=== PATIENT | male | born 1990 | race Caucasian/White ===

== ENCOUNTER → 2016-04-05 | Outpatient (CLI) | payer OTHER ==
--- NOTE | 2016-04-05 19:46 | REP ---
Clinical: Trauma. Bilateral pain. Technique: AP and lateral views of the right and left forearms. Findings: Bilateral forearms demonstrate acute comminuted fractures involving the distal radial metaphyses extending to the articular surfaces along with ulnar styloid fractures. Impression: Bilateral comminuted fractures involving the distal radial metaphyses extending to the articular surfaces along with ulnar styloid fractures. Overlying soft tissue swelling. Signed by Bernardo Bedoya MD 04/05/2016 07:38 P
--- NOTE | 2016-04-05 19:49 | REP ---
Clinical: Trauma. Bilateral pain. Technique: AP and lateral views of the left wrist with AP, lateral, and oblique views of the right wrist. Findings: Bilateral acute comminuted fractures involving the distal radial metaphyses extending to the articular surfaces along with bilateral ulnar styloid fractures. The carpal bones appear relatively intact bilaterally although subtle injuries cannot be excluded. Overlying soft tissue swelling noted bilaterally. Impression: Bilateral comminuted fractures involving the distal radial metaphyses extending to the articular surfaces along with ulnar styloid fractures. Injuries to the carpal bones cannot definitively be excluded although not identified by current imaging. Signed by Bernardo Bedoya MD 04/05/2016 07:41 P
== END ==
LOC: M LRY 19:05
PROVIDERS: ATTEND Nurse Practitioner Family
DX: S69.91XA Unspecified injury of right wrist, hand and finger(s), initial encounter (principal); X58.XXXA Exposure to other specified factors, initial encounter; Y92.89 Other specified places as the place of occurrence of the external cause

== ENCOUNTER 2016-04-07 13:12 | Emergency (ER) | payer OTHER ==
[2016-04-07] MEDS ORDERED: ACETAMINOPHEN 325 MG TAB As Ordered ONE (15:12)
[2016-04-07] MEDS ORDERED: IBUPROFEN 800 MG TAB As Ordered ONE (15:13)
[2016-04-07] MEDS ORDERED: NORCO, ANEXSIA 5/325MG TABLET (HYDROcodone/ACETAMINOPHEN) As Ordered ONE (16:07)
[2016-04-07] MEDS ORDERED: AUGMENTIN 875 MG TAB As Ordered ONE (16:07)
--- NOTE | 2016-04-07 16:22 | EDDOCDS ---
Nurse's Notes [facility] Name: Rober Zaragoza Age: 25 yrs Sex: Male : 1990 Arrival Date: 04/07/2016 Time: 13:12 Bed PR [facility] Diagnosis: Acute sinusitis;Pain in unspecified wrist-Bilateral Fractures, Pain meds given Presentation: 04/07 13:17 Presenting complaint: states: Fever since . had splint put on both wrist rs3 Friday. Was seen at urgent care today. they sent him here. temp 103.7 orally. Adult Sepsis Screening: The patient does not have new or worsening altered mentation. Patient's respiratory rate is less than 22. Systolic blood pressure is greater than 100. Patient has a qSOFA score of 0- Negative Sepsis Screen. Suicide/Homicide risk assessment- the patient denies having any suicidal and/or homicidal ideations and does not present with any other emotional, behavioral or mental health complaints. Status: The patient is a dependent. Transition of care: patient was not received from another setting of care. 13:17 Acuity: FAWAD Level 3 rs3 13:17 Method Of Arrival: Walkin/Carried/Asstd rs3 Triage Assessment: 13:20 General: Appears in no apparent distress. Pain: Location: headache, throat. Pt Declines rs3 HIV testing. Historical: - Allergies: no known allergies; - Home Meds: 1. ibuprofen 800 mg Oral tab as needed - PMHx: none; - PSHx: none; - Social history: Smoking status: Patient states former smoker of tobacco. No barriers to communication noted, The patient speaks fluent Welsh. - Family history: Not pertinent. - : The pt / caregiver states he / she is not on anticoagulants. Home medication list is obtained from the patient. - Exposure Risk Screening:: None identified. Screenin:14 Screening information is obtained from the patient. Fall risk: No risks identified. jo3 Assistance ADL's: requires no assistance with activities of daily living. Abuse/DV Screen: The patient / caregiver reports he/she is: not in a situation that causes fear, pain or injury. Nutritional screening: No deficits noted. Advance Directives: There is no active DNR order. home support is adequate. Assessment: 16:14 General: Appears in no apparent distress, comfortable, Behavior is appropriate for age, jo3 cooperative. Neurological: Level of Consciousness is awake, alert, Oriented to person, place, time. Respiratory: Airway is patent Respiratory effort is even, unlabored. Derm: Skin is pink, warm & dry. Musculoskeletal: MARSHA splints in place to upper extremities. Good CSM noted. Vital Signs: 13:14 BP 133 / 74; Pulse 123; Resp 18 S; Temp 102.3(O); Pulse Ox 98% on R/A; Weight 77.11 kg dd6 (R); Height 6 ft. 2 in. (187.96 cm) (R); 16:14 BP 122 / 72; Pulse 70; Resp 16; Temp 99.7(O); Pulse Ox 98% on R/A; jo3 13:14 Body Mass Index 21.83 (77.11 kg, 187.96 cm) dd6 Vitals: 13:14 Log In Time: April 07, 2016 at 13:12. dd6 15:24 Strep Screen is obtained and tested: Negative, a GATSNEG culture is ordered in [facility] dls and sent. ED Course: 13:13 Patient visited by Justin Arrieta PCA. dd6 13:13 [facility] SAUNDERS is Private Physician. dd6 13:13 Patient moved to Waiting dd6 13:15 Patient moved to Pre RCE dd6 13:19 Triage Initiated rs3 13:32 Patient moved to Triage 3 dls 14:23 Patient visited by Liz Licona RN. dls 15:06 Janel Tamez PA-C is [facility]. ef1 15:06 Bill Burroughs MD is Attending Physician. ef1 15:06 Patient visited by Janel Tamez PA-C. ef1 15:07 Patient moved to PR2 / 26 dls 15:22 -Influenza A&B Rapid Antigen - Nose Sent. dls 15:25 GATS (NEGATIVE STREP SCREEN) Sent. ar3 15:34 Patient visited by Janel Tamez PA-C. ef1 15:39 [facility] Payment Agreement was scanned into [employer] and attached to record. jp5 15:46 Patient name changed from Rober\S\L\S\Mila\S\ to Rober\S\Gaurav\S\Mila. EDMS 15:53 Patient visited by Janel Tamez PA-C. ef1 15:55 [facility] SAUND[facility] is Referral Physician. ef1 15:55 [place] is Referral Physician. ef1 16:14 The patient / caregiver is instructed regarding the plan of care and ED course. jo3 16:14 No IV's were initiated during this patient's visit. No procedures done that require jo3 assistance. Administered Medications: 15:22 Drug: Ibuprofen 800 mg [ibuprofen 800 mg tablet (1 tabs)] Route: PO; dls 15:22 Drug: Acetaminophen 975 mg [acetaminophen 325 mg tablet (3 tabs)] Route: PO; dls 16:14 Drug: HYDROcodone-acetaminophen 1 tabs [hydrocodone 5 mg-acetaminophen 325 mg tablet (1 jo3 tabs)] Route: PO; 16:14 Drug: Amoxicillin-Clavulanate 1 tabs [amoxicillin 875 mg-potassium clavulanate 125 mg jo3 tablet (1 tabs)] Route: PO; Order Results: There are currently no results for this order. Outcome: 15:55 Discharge ordered by Provider. ef1 16:14 Discharge Assessment: Patient awake, alert and oriented x 3. No cognitive and/or jo3 functional deficits noted. Patient verbalized understanding of disposition instructions. patient administered narcotics - yes. Pt provided with safe discharge. The following High Risk Discharge criteria are identified: None. Discharged to home ambulatory, with significant other. Condition: stable Condition: improved. Discharge instructions given to patient, Instructed on discharge instructions, follow up and referral plans. medication usage, Demonstrated understanding of instructions, medications, Pt was receptive of discharge instructions/ teaching. Prescriptions given X x5. No special radiology studies were completed. Property sent home with patient. 16:21 Patient left the ED. jo3 Signatures: Dispatcher [employer] EDMS Liz Licona RN RN dls Ernestina Ramírez RN RN carlos eduardo3 Justin Arrieta, HOT DIE PICKER HOT DIE PICKER dd6 Janel Tamez PA-C PA-C ef1 Rose FisherRN RN rs3 Kandis Huerta, HOT DIE PICKER HOT DIE PICKER ar3 Constantine Garcia jp5 MTDD
--- NOTE | 2016-04-07 16:22 | EDDOCDS ---
Physician Documentation [facility] Name: Rober Zaragoza Age: 25 yrs Sex: Male : 1990 Arrival Date: 04/07/2016 Time: 13:12 Bed PR [facility] Disposition: 04/07/16 15:55 Discharged to Home/Self Care. Impression: Acute sinusitis, Pain in unspecified wrist - Bilateral Fractures, Pain meds given. - Condition is Stable. - Discharge Instructions: Sinusitis, [id number], Wrist Fracture, [id number]. - Prescriptions for Augmentin 875- 125 mg Oral Tablet - take 1 tablet by ORAL route every 12 hours for 10 days; 20 tablet. Ibuprofen 800 mg Oral Tablet - take 1 tablet by ORAL route every 8 hours As needed take with food; 30 tablet. [place] 5- 325 mg Oral Tablet - take 1 tablet by ORAL route every 6 hours As needed MDD: 4 tabs; 20 tablet. Claritin 10 mg Oral Tablet - take 1 tablet by ORAL route once daily As needed; 30 tablet. Mucinex 600 mg - take 1 tablet by ORAL route 2 times per day; 30 tablet. - Medication Reconciliation, Local Pharmacy Hours form. - Follow up: [facility]; When: 1 - 2 days; Reason: Recheck today's complaints, Continuance of care. Follow up: Emergency Department; Reason: Worsening of conditions. Follow up: [facility]; When: 1 - 2 days; Reason: Further diagnostic work-up, Recheck today's complaints, Continuance of care. - Problem is new. - Symptoms have improved. Historical: - Allergies: no known allergies; - Home Meds: 1. ibuprofen 800 mg Oral tab as needed - PMHx: none; - PSHx: none; - Social history: Smoking status: Patient states former smoker of tobacco. No barriers to communication noted, The patient speaks fluent Uzbek. - Family history: Not pertinent. - : The pt / caregiver states he / she is not on anticoagulants. Home medication list is obtained from the patient. - Exposure Risk Screening:: None identified. Vital Signs: 04/07 13:14 BP 133 / 74; Pulse 123; Resp 18 S; Temp 102.3(O); Pulse Ox 98% on R/A; Weight 77.11 kg dd6 / 170 lbs (R); Height 6 ft. 2 in. (187.96 cm) (R); 16:14 BP 122 / 72; Pulse 70; Resp 16; Temp 99.7(O); Pulse Ox 98% on R/A; jo3 13:14 Body Mass Index 21.83 (77.11 kg, 187.96 cm) dd6 MDM: 15:05 Strep Screen, Nursing ordered. ef1 15:06 Ibuprofen 800 mg PO once ordered. ef1 15:06 Acetaminophen Tablet 975 mg PO once ordered. ef1 15:06 Obtain sample by nasopharyngeal swab ordered. ef1 15:06 Fluid Challenge ordered. ef1 15:06 -Influenza A&B Rapid Antigen - Nose Ordered. EDMS 15:24 GATS (NEGATIVE STREP SCREEN) Ordered. EDAR 15:39 [facility] Payment Agreement was scanned into [employer] and attached to record. 5 15:39 Financial registration complete. jp5 15:55 HYDROcodone-acetaminophen 5 mg-325 mg 1 tabs PO once ordered. ef1 15:55 Amoxicillin-Clavulanate 875 mg 1 tabs PO once ordered. ef1 Administered Medications: 15:22 Drug: Ibuprofen 800 mg [ibuprofen 800 mg tablet (1 tabs)] Route: PO; dls 15:22 Drug: Acetaminophen 975 mg [acetaminophen 325 mg tablet (3 tabs)] Route: PO; dls 16:14 Drug: HYDROcodone-acetaminophen 1 tabs [hydrocodone 5 mg-acetaminophen 325 mg tablet (1 jo3 tabs)] Route: PO; 16:14 Drug: Amoxicillin-Clavulanate 1 tabs [amoxicillin 875 mg-potassium clavulanate 125 mg jo3 tablet (1 tabs)] Route: PO; Signatures: Dispatcher [employer] EDAR Ernestina Ramírez RN RN jo3 Janel Tamez PA-C PA-Connie ef1 Rose FisherRN RN rs3 Constantine Garcia jp5 Liz Licona RN dls The chart was reviewed and I authenticate all verbal orders and agree with the evaluation and treatment provided.Attachments: 15:39 [facility] Payment Agreement 5 MTDD
--- NOTE | 2016-04-09 17:22 | EDDOCDS ---
Nurse's Notes [facility] Name: Rober Zaragoza Age: 25 yrs Sex: Male : 1990 Arrival Date: 04/07/2016 Time: 13:12 Bed PR [facility]: Acute sinusitis;Pain in unspecified wrist-Bilateral Fractures, Pain meds given Presentation: 04/07 13:17 Presenting complaint: states: Fever since . had splint put on both wrist rs3 Friday. Was seen at urgent care today. they sent him here. temp 103.7 orally. Adult Sepsis Screening: The patient does not have new or worsening altered mentation. Patient's respiratory rate is less than 22. Systolic blood pressure is greater than 100. Patient has a qSOFA score of 0- Negative Sepsis Screen. Suicide/Homicide risk assessment- the patient denies having any suicidal and/or homicidal ideations and does not present with any other emotional, behavioral or mental health complaints. Status: The patient is a dependent. Transition of care: patient was not received from another setting of care. 13:17 Acuity: FAWAD Level 3 rs3 13:17 Method Of Arrival: Walkin/Carried/Asstd rs3 Triage Assessment: 13:20 General: Appears in no apparent distress. Pain: Location: headache, throat. Pt Declines rs3 HIV testing. Historical: - Allergies: no known allergies; - Home Meds: 1. ibuprofen 800 mg Oral tab as needed - PMHx: none; - PSHx: none; - Social history: Smoking status: Patient states former smoker of tobacco. No barriers to communication noted, The patient speaks fluent Wallisian. - Family history: Not pertinent. - : The pt / caregiver states he / she is not on anticoagulants. Home medication list is obtained from the patient. - Exposure Risk Screening:: None identified. Screenin:14 Screening information is obtained from the patient. Fall risk: No risks identified. jo3 Assistance ADL's: requires no assistance with activities of daily living. Abuse/DV Screen: The patient / caregiver reports he/she is: not in a situation that causes fear, pain or injury. Nutritional screening: No deficits noted. Advance Directives: There is no active DNR order. home support is adequate. Assessment: 16:14 General: Appears in no apparent distress, comfortable, Behavior is appropriate for age, jo3 cooperative. Neurological: Level of Consciousness is awake, alert, Oriented to person, place, time. Respiratory: Airway is patent Respiratory effort is even, unlabored. Derm: Skin is pink, warm & dry. Musculoskeletal: MARSHA splints in place to upper extremities. Good CSM noted. Vital Signs: 13:14 BP 133 / 74; Pulse 123; Resp 18 S; Temp 102.3(O); Pulse Ox 98% on R/A; Weight 77.11 kg dd6 (R); Height 6 ft. 2 in. (187.96 cm) (R); 16:14 BP 122 / 72; Pulse 70; Resp 16; Temp 99.7(O); Pulse Ox 98% on R/A; jo3 13:14 Body Mass Index 21.83 (77.11 kg, 187.96 cm) dd6 Vitals: 13:14 Log In Time: April 07, 2016 at 13:12. dd6 15:24 Strep Screen is obtained and tested: Negative, a GATSNEG culture is ordered in [facility] dls and sent. ED Course: 13:13 Patient visited by Justin Arrieta PCA. dd6 13:13 [facility] is Private Physician. dd6 13:13 Patient moved to Waiting dd6 13:15 Patient moved to Pre RCE dd6 13:19 Triage Initiated rs3 13:32 Patient moved to Triage 3 dls 14:23 Patient visited by Liz Licona RN. dls 15:06 Janel Tamez PA-C is [facility]. ef1 15:06 Bill Burroughs MD is Attending Physician. ef1 15:06 Patient visited by Janel Tamez PA-C. ef1 15:07 Patient moved to PR2 / 26 dls 15:22 -Influenza A&B Rapid Antigen - Nose Sent. dls 15:25 GATS (NEGATIVE STREP SCREEN) Sent. ar3 15:34 Patient visited by Janel Tamez PA-C. ef1 15:39 [facility] Payment Agreement was scanned into [employer] and attached to record. jp5 15:46 Patient name changed from Rober\S\L\S\Mila\S\ to Rober\S\Gaurav\S\Mila. EDMS 15:53 Patient visited by Janel Tamez PA-C. ef1 15:55 [facility] HOFFMAN is Referral Physician. ef1 15:55 Diamond Muhammad is Referral Physician. ef1 16:14 The patient / caregiver is instructed regarding the plan of care and ED course. jo3 16:14 No IV's were initiated during this patient's visit. No procedures done that require jo3 assistance. 21:59 T-Sheet-- Draft Copy was scanned into [employer] and attached to record. klr Administered Medications: 15:22 Drug: Ibuprofen 800 mg [ibuprofen 800 mg tablet (1 tabs)] Route: PO; dls 15:22 Drug: Acetaminophen 975 mg [acetaminophen 325 mg tablet (3 tabs)] Route: PO; dls 16:14 Drug: HYDROcodone-acetaminophen 1 tabs [hydrocodone 5 mg-acetaminophen 325 mg tablet (1 jo3 tabs)] Route: PO; 16:14 Drug: Amoxicillin-Clavulanate 1 tabs [amoxicillin 875 mg-potassium clavulanate 125 mg jo3 tablet (1 tabs)] Route: PO; Order Results: Lab Order: -Influenza A&B Rapid Antigen - Nose; SPEC'M 04/07/16 15:15 Test: INFLUENZA A RAPID SCR by ICA; Value: INFLUENZA A RESULTS NEGATIVE; Status: F Test: INFLUENZA A RAPID SCR by ICA; Value: Comments:; Status: F Test: INFLUENZA B RAPID SCR by ICA; Value: INFLUENZA B RESULTS NEGATIVE; Status: F Test Note: ; The Influenza test is a direct rapid immunoassay for the qualitative detection of Influenza viral antigen. Cell culture (Viral Culture) testing should be considered to confirm NEGATIVE results and to assist in detecting other viruses that can provide similar clinical symptoms. Please contact the lab within 24 hours ([phone]) if confirmatory testing is desired. Lab Order: GATS (NEGATIVE STREP SCREEN); SPEC'M 04/07/16 15:15 Test: GATS CULTURE (NEG STREP SCR); Value: GATS RESULT NEGATIVE FOR STREP PYOGENES (GROUP A); Status: F Outcome: 15:55 Discharge ordered by Provider. ef1 16:14 Discharge Assessment: Patient awake, alert and oriented x 3. No cognitive and/or jo3 functional deficits noted. Patient verbalized understanding of disposition instructions. patient administered narcotics - yes. Pt provided with safe discharge. The following High Risk Discharge criteria are identified: None. Discharged to home ambulatory, with significant other. Condition: stable Condition: improved. Discharge instructions given to patient, Instructed on discharge instructions, follow up and referral plans. medication usage, Demonstrated understanding of instructions, medications, Pt was receptive of discharge instructions/ teaching. Prescriptions given X x5. No special radiology studies were completed. Property sent home with patient. 16:21 Patient left the ED. jo3 Signatures: Dispatcher [employer] EDHI Liz Licona, RN RN Ernestina FinneyRN RN jo3 Justin Arrieta, FILER METAL PATTERNS FILER METAL PATTERNS dd6 Janel Tamez, PA-C PA-C ef1 Rose FisherRN RN rs3 Kandis Huerta, FILER METAL PATTERNS FILER METAL PATTERNS ar3 Constantine Garcia jp5 Stacy Goel Chart Complete MTDJeff
--- NOTE | 2016-04-09 17:22 | EDDOCDS ---
Physician Documentation [facility] Name: Rober Zaragoza Age: 25 yrs Sex: Male : 1990 Arrival Date: 04/07/2016 Time: 13:12 Bed PR [facility] Disposition: 04/07/16 15:55 Discharged to Home/Self Care. Impression: Acute sinusitis, Pain in unspecified wrist - Bilateral Fractures, Pain meds given. - Condition is Stable. - Discharge Instructions: Sinusitis, Fkev-[id number], Wrist Fracture, [id number]. - Prescriptions for Augmentin 875- 125 mg Oral Tablet - take 1 tablet by ORAL route every 12 hours for 10 days; 20 tablet. Ibuprofen 800 mg Oral Tablet - take 1 tablet by ORAL route every 8 hours As needed take with food; 30 tablet. [place] 5- 325 mg Oral Tablet - take 1 tablet by ORAL route every 6 hours As needed MDD: 4 tabs; 20 tablet. Claritin 10 mg Oral Tablet - take 1 tablet by ORAL route once daily As needed; 30 tablet. Mucinex 600 mg - take 1 tablet by ORAL route 2 times per day; 30 tablet. - Medication Reconciliation, Local Pharmacy Hours form. - Follow up: [facility]; When: 1 - 2 days; Reason: Recheck today's complaints, Continuance of care. Follow up: Emergency Department; Reason: Worsening of conditions. Follow up: [facility]; When: 1 - 2 days; Reason: Further diagnostic work-up, Recheck today's complaints, Continuance of care. - Problem is new. - Symptoms have improved. Historical: - Allergies: no known allergies; - Home Meds: 1. ibuprofen 800 mg Oral tab as needed - PMHx: none; - PSHx: none; - Social history: Smoking status: Patient states former smoker of tobacco. No barriers to communication noted, The patient speaks fluent Pashto. - Family history: Not pertinent. - : The pt / caregiver states he / she is not on anticoagulants. Home medication list is obtained from the patient. - Exposure Risk Screening:: None identified. Vital Signs: 04/07 13:14 BP 133 / 74; Pulse 123; Resp 18 S; Temp 102.3(O); Pulse Ox 98% on R/A; Weight 77.11 kg dd6 / 170 lbs (R); Height 6 ft. 2 in. (187.96 cm) (R); 16:14 BP 122 / 72; Pulse 70; Resp 16; Temp 99.7(O); Pulse Ox 98% on R/A; jo3 13:14 Body Mass Index 21.83 (77.11 kg, 187.96 cm) dd6 MDM: 15:05 Strep Screen, Nursing ordered. ef1 15:06 Ibuprofen 800 mg PO once ordered. ef1 15:06 Acetaminophen Tablet 975 mg PO once ordered. ef1 15:06 Obtain sample by nasopharyngeal swab ordered. ef1 15:06 Fluid Challenge ordered. ef1 15:06 -Influenza A&B Rapid Antigen - Nose Ordered. EDMS 15:24 GATS (NEGATIVE STREP SCREEN) Ordered. [facility] 15:39 [facility] Payment Agreement was scanned into [employer] and attached to record. jp5 15:39 Financial registration complete. jp5 15:55 HYDROcodone-acetaminophen 5 mg-325 mg 1 tabs PO once ordered. ef1 15:55 Amoxicillin-Clavulanate 875 mg 1 tabs PO once ordered. ef1 21:59 T-Sheet-- Draft Copy was scanned into [employer] and attached to record. klr Administered Medications: 15:22 Drug: Ibuprofen 800 mg [ibuprofen 800 mg tablet (1 tabs)] Route: PO; dls 15:22 Drug: Acetaminophen 975 mg [acetaminophen 325 mg tablet (3 tabs)] Route: PO; dls 16:14 Drug: HYDROcodone-acetaminophen 1 tabs [hydrocodone 5 mg-acetaminophen 325 mg tablet (1 jo3 tabs)] Route: PO; 16:14 Drug: Amoxicillin-Clavulanate 1 tabs [amoxicillin 875 mg-potassium clavulanate 125 mg jo3 tablet (1 tabs)] Route: PO; Signatures: Dispatcher [employer] EDIL Ernestina RamírezRN RN jo3 Janel Tamez PA-C PA-C ef1 Rose FisherRN RN rs3 Constantine Garcia jp5 Stacy Goel Debra RN dls The chart was reviewed and I authenticate all verbal orders and agree with the evaluation and treatment provided.Attachments: 15:39 [facility] Payment Agreement jp5 21:59 T-Sheet-- Draft Copy klr Chart Complete MTDD
--- NOTE | 2016-04-09 17:22 | EDDOCDS ---
Physician Documentation [facility] Name: Rober Zaragoza Age: 25 yrs Sex: Male : 1990 Arrival Date: 04/07/2016 Time: 13:12 Bed PR [facility] Disposition: 04/07/16 15:55 Discharged to Home/Self Care. Impression: Acute sinusitis, Pain in unspecified wrist - Bilateral Fractures, Pain meds given. - Condition is Stable. - Discharge Instructions: Sinusitis, Mkaa-ae-Dflm, Wrist Fracture, Maps-px-Gquu. - Prescriptions for Augmentin 875- 125 mg Oral Tablet - take 1 tablet by ORAL route every 12 hours for 10 days; 20 tablet. Ibuprofen 800 mg Oral Tablet - take 1 tablet by ORAL route every 8 hours As needed take with food; 30 tablet. [place] 5- 325 mg Oral Tablet - take 1 tablet by ORAL route every 6 hours As needed MDD: 4 tabs; 20 tablet. Claritin 10 mg Oral Tablet - take 1 tablet by ORAL route once daily As needed; 30 tablet. Mucinex 600 mg - take 1 tablet by ORAL route 2 times per day; 30 tablet. - Medication Reconciliation, Local Pharmacy Hours form. - Follow up: [facility]; When: 1 - 2 days; Reason: Recheck today's complaints, Continuance of care. Follow up: Emergency Department; Reason: Worsening of conditions. Follow up: [facility]; When: 1 - 2 days; Reason: Further diagnostic work-up, Recheck today's complaints, Continuance of care. - Problem is new. - Symptoms have improved. Historical: - Allergies: no known allergies; - Home Meds: 1. ibuprofen 800 mg Oral tab as needed - PMHx: none; - PSHx: none; - Social history: Smoking status: Patient states former smoker of tobacco. No barriers to communication noted, The patient speaks fluent Yoruba. - Family history: Not pertinent. - : The pt / caregiver states he / she is not on anticoagulants. Home medication list is obtained from the patient. - Exposure Risk Screening:: None identified. Vital Signs: 04/07 13:14 BP 133 / 74; Pulse 123; Resp 18 S; Temp 102.3(O); Pulse Ox 98% on R/A; Weight 77.11 kg dd6 / 170 lbs (R); Height 6 ft. 2 in. (187.96 cm) (R); 16:14 BP 122 / 72; Pulse 70; Resp 16; Temp 99.7(O); Pulse Ox 98% on R/A; jo3 13:14 Body Mass Index 21.83 (77.11 kg, 187.96 cm) dd6 MDM: 15:05 Strep Screen, Nursing ordered. ef1 15:06 Ibuprofen 800 mg PO once ordered. ef1 15:06 Acetaminophen Tablet 975 mg PO once ordered. ef1 15:06 Obtain sample by nasopharyngeal swab ordered. ef1 15:06 Fluid Challenge ordered. ef1 15:06 -Influenza A&B Rapid Antigen - Nose Ordered. EDMS 15:24 GATS (NEGATIVE STREP SCREEN) Ordered. [facility] 15:39 [facility] Payment Agreement was scanned into [employer] and attached to record. jp5 15:39 Financial registration complete. jp5 15:55 HYDROcodone-acetaminophen 5 mg-325 mg 1 tabs PO once ordered. ef1 15:55 Amoxicillin-Clavulanate 875 mg 1 tabs PO once ordered. ef1 21:59 T-Sheet-- Draft Copy was scanned into [employer] and attached to record. klr Administered Medications: 15:22 Drug: Ibuprofen 800 mg [ibuprofen 800 mg tablet (1 tabs)] Route: PO; dls 15:22 Drug: Acetaminophen 975 mg [acetaminophen 325 mg tablet (3 tabs)] Route: PO; dls 16:14 Drug: HYDROcodone-acetaminophen 1 tabs [hydrocodone 5 mg-acetaminophen 325 mg tablet (1 jo3 tabs)] Route: PO; 16:14 Drug: Amoxicillin-Clavulanate 1 tabs [amoxicillin 875 mg-potassium clavulanate 125 mg jo3 tablet (1 tabs)] Route: PO; Signatures: Dispatcher [employer] EDIN Ernestina RamírezRN RN jo3 Janel Tamez PA-C PA-C ef1 Rose FisherRN RN rs3 Constantine Garcia jp5 Stacy Goel Debra RN dls The chart was reviewed and I authenticate all verbal orders and agree with the evaluation and treatment provided.Attachments: 15:39 [facility] Payment Agreement jp5 21:59 T-Sheet-- Draft Copy klr Chart Complete MTDD
== END 2016-04-07 16:21 | disposition home or self-care (01) ==
LOC: M ED 13:12
DX: J01.90 Acute sinusitis, unspecified (principal); S62.91XS Unspecified fracture of right hand, sequela; S62.92XS Unspecified fracture of left hand, sequela; X58.XXXS Exposure to other specified factors, sequela; Y92.89 Other specified places as the place of occurrence of the external cause; Y93.89 Activity, other specified; Y99.8 Other external cause status; Z87.891 Personal history of nicotine dependence; Z79.1 Long term (current) use of non-steroidal anti-inflammatories (NSAID)

== ENCOUNTER → 2016-04-07 | Outpatient (REF) | payer OTHER | END | disposition home or self-care (01) | LOC: M SFHCLERA 12:56 | PROVIDERS: ATTEND Nurse Practitioner Family | DX: R50.9 Fever, unspecified (principal) ==